=== PATIENT | female | born 1950 | race Caucasian/White ===

== ENCOUNTER 2017-12-12 15:45 | Outpatient (CLI) | payer MEDICARE, BC | END 2017-12-12 15:46 | disposition home or self-care (01) | LOC: BICMAMMO 15:45 | PROVIDERS: ATTEND Internal Medicine | DX: Z12.31 Encounter for screening mammogram for malignant neoplasm of breast (principal) | CPT/HCPCS: 77063; 77067 ==

== ENCOUNTER 2019-05-16 07:50 | Outpatient (CLI) | payer MEDICARE, BC ==
--- NOTE | 2019-05-16 08:50 | ULT ---
Thyroid sonogram HISTORY: Thyroid nodule seen incidentally on outside exam. FINDINGS: Right thyroid lobe measures up to 4.7 cm. At the inferior pole is a well-circumscribed oval homogeneous hypoechoic lesion with posterior acoustic enhancement. It measures 0.5 cm length by 0.3 cm depth. No internal calcifications. Isthmus is 0.3 cm thickness. Left thyroid lobe has a homogeneous echotexture and is 4.0 cm length. IMPRESSION: Small benign-appearing nodule inferior pole right thyroid lobe. TI RADS 4. Given the small size of the lesion, imaging follow-up is not required.
== END 2019-05-16 07:51 | disposition home or self-care (01) ==
LOC: BICULT 07:50
PROVIDERS: ATTEND Internal Medicine Cardiovascular Disease
DX: E04.1 Nontoxic single thyroid nodule (principal); E07.89 Other specified disorders of thyroid
CPT/HCPCS: 36415; 76536; 83036; 84443

== ENCOUNTER 2021-03-16 14:25 | Outpatient (CLI) | payer MEDICARE, BC | END 2021-03-16 14:26 | disposition home or self-care (01) | LOC: BICULT 14:25 | PROVIDERS: ATTEND Otolaryngology Plastic Surgery within the Head & Neck | DX: E04.1 Nontoxic single thyroid nodule (principal) | CPT/HCPCS: 76536 ==

== ENCOUNTER 2021-04-13 11:01 | Outpatient (CLI) | payer MEDICARE, BC | END 2021-04-13 11:02 | disposition home or self-care (01) | LOC: BICMAMMO 11:01 | PROVIDERS: ATTEND Internal Medicine | DX: Z12.31 Encounter for screening mammogram for malignant neoplasm of breast (principal) | CPT/HCPCS: 77063; 77067 ==

== ENCOUNTER 2023-02-12 09:45 | Outpatient (CLI) | payer MEDICARE, BC | END 2023-02-12 09:46 | disposition home or self-care (01) | LOC: BICMAMMO 09:45 | PROVIDERS: ATTEND Internal Medicine | DX: Z12.31 Encounter for screening mammogram for malignant neoplasm of breast (principal) | CPT/HCPCS: 77063; 77067 ==

== ENCOUNTER 2024-02-21 13:29 | Outpatient (CLI) | payer MEDICARE, BC | END 2024-02-21 13:30 | disposition home or self-care (01) | LOC: BICMAMMO 13:29 | PROVIDERS: ATTEND Internal Medicine | DX: Z12.31 Encounter for screening mammogram for malignant neoplasm of breast (principal) | CPT/HCPCS: 77063; 77067 ==

== ENCOUNTER 2025-03-20 09:04 | Outpatient (CLI) | payer MEDICARE, BC | END 2025-03-20 09:05 | disposition home or self-care (01) | LOC: MRI 09:04 | PROVIDERS: ATTEND Family Medicine Sports Medicine | DX: M25.571 Pain in right ankle and joints of right foot (principal); S86.011A Strain of right Achilles tendon, initial encounter; R93.7 Abnormal findings on diagnostic imaging of other parts of musculoskeletal system ==